=== PATIENT | female | born 1975 | race Caucasian/White ===

== ENCOUNTER → 2017-09-11 | Outpatient (CLI) | payer OTHER ==
[~2017-09-11] MED LIST: ACET325 PO; ALBU90OI INH; ASPIRIN-ACETAM1 EACH PO; BUDE6HFA INH; Bactrim Ds Tab1 EACH PO; Cheratussin AC118 ML PO; Cipro500 MG PO; Flagyl500 MG PO; GABA300 PO; GABA300T24 PO; GLIM2 PO; Glucophage1000 MG PO; LEVSOD125 PO; PRED20 PO; PROM25 PO; Percocet 10-321 EACH PO; Percocet 5-3251 EACH PO; Pravachol40 MG PO; Prednisone20 MG PO; SERT100 PO; VANC125 PO; ZESTORETIC 20-121 EA PO; ZOLP5 PO; Zofran Odt4 MG SL
[2017-09-13 12:39] LABS: HPV Genotype 16 Not Detected (NOTDET); HPV Genotype 18 Not Detected (NOTDET)
[2017-09-25 09:42] LABS: HPV High Risk Other Not Detected (NOTDET)
== END | disposition home or self-care (01) ==
LOC: LAB 11:46 → LAB SHORT 11:46
PROVIDERS: Obstetrics & Gynecology
DX: Z01.419 Encounter for gynecological examination (general) (routine) without abnormal findings (principal); Z90.710 Acquired absence of both cervix and uterus
CPT/HCPCS: 87624; G0123

== ENCOUNTER 2017-12-04 13:50 | Emergency (ER) | END 2017-12-04 17:03 | disposition home or self-care (01) ==

== ENCOUNTER 2018-02-15 05:43 | Day surgery (SDC) | payer OTHER ==
[~2018-02-15] VITALS: Ht 172.7 cm; Wt 145.6 kg
[~2018-02-15 05:43] MED LIST changes: -ACET325 PO; -ASPIRIN-ACETAM1 EACH PO; -Cipro500 MG PO; -Flagyl500 MG PO; -Glucophage1000 MG PO; -LEVSOD125 PO; +LEVSOD88 PO; +Metformin HCl500 MG PO; +PRAV20 PO; -PROM25 PO; -Percocet 5-3251 EACH PO; -Pravachol40 MG PO; -SERT100 PO; +SERT50 PO; -VANC125 PO
[2018-02-15] MEDS ORDERED: Percocet 10-321 EACH PO (06:35)
== END 2018-02-15 22:37 | disposition home or self-care (01) ==
LOC: ORSCMMR 05:43 → ORD 07:30 → ORSCMMR 22:37
PROVIDERS: Surgery
PROC: 0FT44ZZ Resection of Gallbladder, Percutaneous Endoscopic Approach (ICD-10-PCS; principal; 2018-02-15 07:30)
DX: K80.11 Calculus of gallbladder with chronic cholecystitis with obstruction (principal); I10 Essential (primary) hypertension; E11.9 Type 2 diabetes mellitus without complications; E03.9 Hypothyroidism, unspecified; E66.01 Morbid (severe) obesity due to excess calories; Z68.42 Body mass index [BMI] 45.0-49.9, adult; Z87.891 Personal history of nicotine dependence; Z79.899 Other long term (current) drug therapy
CPT/HCPCS: 82947; 88304; J0330; J0690; J1885; J2250; J2405; J2765; J3010; J7120

== ENCOUNTER 2018-03-24 06:02 | Emergency (ER) | payer OTHER ==
[~2018-03-24] VITALS: Ht 172.7 cm; Wt 136.1 kg
[~2018-03-24 06:02] MED LIST changes: +Glucophage1000 MG PO; +LEVSOD125 PO; -LEVSOD88 PO; -Metformin HCl500 MG PO; -PRAV20 PO; +Pravachol40 MG PO; +SERT100 PO; -SERT50 PO
[2018-03-24 06:45] LABS: Source, Urine Clean Catch
[2018-03-24 06:49] LABS: Appearance, Urine Clear (Clear); Bilirubin, Urine Neg (Neg); Blood, Urine 2+ (Neg); Color, Urine Yellow (P-Yellow); Glucose Qualitative, Urine Neg (Neg); Ketones, Urine Neg (Neg); Leukocyte Esterase, Urine Neg (Neg); Nitrite, Urine Neg (Neg); Protein, Urine 3+ (Neg); Urobilinogen, Urine NORM (Normal)
[2018-03-24 06:51] LABS: BASOPHILS ABSOLUTE AUTO 0.04 K/mm3 (0.00-0.23); BASOPHILS PERCENT AUTO 0 % (0-2); EOSINOPHILS ABSOLUTE AUTO 0.59 K/mm3 (0.00-0.68); EOSINOPHILS PERCENT AUTO 5 % (0-6); Hematocrit 39.5 % (33.0-51.0); Hemoglobin 12.6 g/dL (11.5-16.0); IMMATURE GRAN ABSOLUTE AUTO 0.03 K/mm3 (0.00-0.10); IMMATURE GRAN PERCENT AUTO 0 % (0-1); LYMPHOCYTES PERCENT AUTO 16 % (21-46); MONOCYTES ABSOLUTE AUTO 0.57 K/mm3 (0.16-1.47); MONOCYTES PERCENT AUTO 5 % (4-13); Mean Corpuscular HGB 26.9 pg (26.0-34.0); Mean Corpuscular HGB Conc 31.9 g/dL (31.5-36.5); Mean Corpuscular Volume 84 fL (80-100); Mean Platelet Volume 9.5 fL (9.1-12.4); NEUTROPHILS ABSOLUTE AUTO 8.34 K/mm3 (1.96-9.15); NEUTROPHILS PERCENT AUTO 73 % (41-73); Platelet Count 292 K/mm3 (150-400); RDW Coefficient Variation 16.5 % (11.7-14.2); RDW Standard Deviation 50.7 fL (35.1-46.3); Red Blood Cell Count 4.69 M/mm3 (3.80-5.20); White Blood Cell Count 11.37 K/mm3 (4.00-11.30)
[2018-03-24 06:55] LABS: White Blood Cells, Urine Not Seen /hpf (0-5)
[2018-03-24 06:56] LABS: Amorphous Light (0-Heavy); Bacteria Few /hpf; Red Blood Cells, Urine 0-2 /hpf (0-2); Squamous Epithelial Cells Many /hpf (Few)
[2018-03-24 06:57] LABS: Granular Casts 0-2 /lpf (0); Transitional Epithelial Cells Few /hpf (0-Rare)
[2018-03-24 07:11] LABS: Albumin, Blood 3.6 g/dL (3.4-5.0); Albumin/Globulin Ratio 0.7 (0.8-1.8); Bilirubin, Total 0.4 mg/dL (0.1-1.0); Bun/Creatinine Ratio 23.2 (12.0-20.0); Calcium, Blood 9.6 mg/dL (8.5-10.1); Creatinine, Blood 1.55 mg/dL (0.40-1.00); Globulin, Blood 5.1 g/dL (2.2-4.0); Potassium, Blood 4.1 mmol/L (3.5-5.5); Total Protein, Blood 8.7 g/dL (6.4-8.2)
[2018-03-24] MEDS ORDERED: Percocet 10-321 EACH PO ×2 (08:27)
[2018-03-24] MEDS ORDERED: Cipro500 MG PO ×2 (08:27)
[2018-03-24] MEDS ORDERED: Flagyl500 MG PO ×2 (08:27)
== END 2018-03-24 08:40 | disposition home or self-care (01) ==
LOC: ER 06:02
PROVIDERS: Emergency Medicine
DX: K57.32 Diverticulitis of large intestine without perforation or abscess without bleeding (principal); J45.909 Unspecified asthma, uncomplicated; E11.9 Type 2 diabetes mellitus without complications; I10 Essential (primary) hypertension; Z87.891 Personal history of nicotine dependence; Z91.041 Radiographic dye allergy status; Z79.899 Other long term (current) drug therapy; Z79.84 Long term (current) use of oral hypoglycemic drugs; Z79.51 Long term (current) use of inhaled steroids
CPT/HCPCS: 36415; 74176; 80053; 81001; 83690; 85025; 96361; 96374; 96375; 99284-25; J2405; J3010; J7030

== ENCOUNTER 2018-03-25 07:43 | Inpatient (IN) | payer OTHER ==
[~2018-03-25] VITALS: Ht 172.7 cm; Wt 142.1 kg
[~2018-03-25 07:43] MED LIST changes: +Cipro500 MG PO; +Flagyl500 MG PO
[2018-03-25 08:32] LABS: BASOPHILS ABSOLUTE AUTO 0.02 K/mm3 (0.00-0.23); BASOPHILS PERCENT AUTO 0 % (0-2); EOSINOPHILS ABSOLUTE AUTO 0.42 K/mm3 (0.00-0.68); EOSINOPHILS PERCENT AUTO 4 % (0-6); Hematocrit 34.8 % (33.0-51.0); Hemoglobin 11.1 g/dL (11.5-16.0); IMMATURE GRAN ABSOLUTE AUTO 0.04 K/mm3 (0.00-0.10); IMMATURE GRAN PERCENT AUTO 0 % (0-1); LYMPHOCYTES ABSOLUTE AUTO 1.14 K/mm3 (0.84-5.20); LYMPHOCYTES PERCENT AUTO 11 % (21-46); MONOCYTES ABSOLUTE AUTO 0.61 K/mm3 (0.16-1.47); MONOCYTES PERCENT AUTO 6 % (4-13); Mean Corpuscular HGB 27.1 pg (26.0-34.0); Mean Corpuscular HGB Conc 31.9 g/dL (31.5-36.5); Mean Corpuscular Volume 85 fL (80-100); Mean Platelet Volume 9.8 fL (9.1-12.4); NEUTROPHILS ABSOLUTE AUTO 8.61 K/mm3 (1.96-9.15); NEUTROPHILS PERCENT AUTO 79 % (41-73); Platelet Count 254 K/mm3 (150-400); RDW Coefficient Variation 16.7 % (11.7-14.2); RDW Standard Deviation 52.3 fL (35.1-46.3); Red Blood Cell Count 4.09 M/mm3 (3.80-5.20); White Blood Cell Count 10.84 K/mm3 (4.00-11.30)
[2018-03-25 09:01] LABS: Albumin, Blood 3.3 g/dL (3.4-5.0); Albumin/Globulin Ratio 0.7 (0.8-1.8); Bilirubin, Total 0.5 mg/dL (0.1-1.0); Bun/Creatinine Ratio 16.1 (12.0-20.0); Calcium, Blood 8.6 mg/dL (8.5-10.1); Creatinine, Blood 2.54 mg/dL (0.40-1.00); Globulin, Blood 4.6 g/dL (2.2-4.0); Potassium, Blood 4.6 mmol/L (3.5-5.5); Total Protein, Blood 7.9 g/dL (6.4-8.2)
[2018-03-25 12:09] LABS: Source, Urine Clean Catch
[2018-03-25 12:26] LABS: Bilirubin, Urine Neg (Neg); Blood, Urine 1+ (Neg); Glucose Qualitative, Urine Neg (Neg); Ketones, Urine Neg (Neg); Leukocyte Esterase, Urine 1+ (Neg); Nitrite, Urine Neg (Neg); Protein, Urine 3+ (Neg); Specific Gravity, Urine 1.025 (1.003-1.022); Urobilinogen, Urine NORM (Normal)
[2018-03-25 12:39] LABS: Appearance, Urine Hazy (Clear); Bacteria Few /hpf; Color, Urine Yellow (P-Yellow); Red Blood Cells, Urine Not Seen /hpf (0-2); Squamous Epithelial Cells Mod /hpf (Few)
[2018-03-26 05:10] LABS: BASOPHILS ABSOLUTE AUTO 0.03 K/mm3 (0.00-0.23); BASOPHILS PERCENT AUTO 0 % (0-2); EOSINOPHILS ABSOLUTE AUTO 0.28 K/mm3 (0.00-0.68); EOSINOPHILS PERCENT AUTO 3 % (0-6); Hemoglobin 10.6 g/dL (11.5-16.0); IMMATURE GRAN ABSOLUTE AUTO 0.02 K/mm3 (0.00-0.10); IMMATURE GRAN PERCENT AUTO 0 % (0-1); LYMPHOCYTES ABSOLUTE AUTO 1.28 K/mm3 (0.84-5.20); LYMPHOCYTES PERCENT AUTO 15 % (21-46); MONOCYTES ABSOLUTE AUTO 0.54 K/mm3 (0.16-1.47); MONOCYTES PERCENT AUTO 7 % (4-13); Mean Corpuscular HGB Conc 31.2 g/dL (31.5-36.5); Mean Corpuscular Volume 87 fL (80-100); Mean Platelet Volume 9.5 fL (9.1-12.4); NEUTROPHILS ABSOLUTE AUTO 6.18 K/mm3 (1.96-9.15); NEUTROPHILS PERCENT AUTO 74 % (41-73); Platelet Count 221 K/mm3 (150-400); RDW Coefficient Variation 16.1 % (11.7-14.2); RDW Standard Deviation 51.9 fL (35.1-46.3); Red Blood Cell Count 3.93 M/mm3 (3.80-5.20); White Blood Cell Count 8.33 K/mm3 (4.00-11.30)
[2018-03-26 05:33] LABS: Albumin, Blood 2.9 g/dL (3.4-5.0); Albumin/Globulin Ratio 0.6 (0.8-1.8); Bilirubin, Total 0.3 mg/dL (0.1-1.0); Bun/Creatinine Ratio 15.9 (12.0-20.0); C-REACTIVE PROTEIN, EXT RANGE 12.4 mg/dL (0.000-0.300); Creatinine, Blood 1.89 mg/dL (0.40-1.00); Globulin, Blood 4.5 g/dL (2.2-4.0); Potassium, Blood 4.6 mmol/L (3.5-5.5); Total Protein, Blood 7.4 g/dL (6.4-8.2)
[2018-03-27 05:45] LABS: Bun/Creatinine Ratio 12.6 (12.0-20.0); Calcium, Blood 8.2 mg/dL (8.5-10.1); Creatinine, Blood 1.43 mg/dL (0.40-1.00); Potassium, Blood 3.9 mmol/L (3.5-5.5)
[2018-03-27 08:31] LABS: Campylobacter Sp Not Detected (NOT DETECT); Enteroaggregative E. coli-EAEC Not Detected (NOT DETECT); Enteropathogenic E. coli-EPEC Not Detected (NOT DETECT); Enterotoxigenic E. coli-ETEC Not Detected (NOT DETECT); Plesiomonas Shigelloides Not Detected (NOT DETECT); Salmonella Sp Not Detected (NOT DETECT); Vibrio Cholerae Not Detected (NOT DETECT); Vibrio Sp Not Detected (NOT DETECT); Yersinia Enterocolitica Not Detected (NOT DETECT)
[2018-03-27 08:32] LABS: Adenovirus F 40/41 Not Detected (NOT DETECT); Astrovirus Not Detected (NOT DETECT); Cryptosporidium Not Detected (NOT DETECT); Cyclospora Cayetanensis Not Detected (NOT DETECT); E. Coli O157 Not Detected (NOT DETECT); Entamoeba Histolytica Not Detected (NOT DETECT); Giardia Lamblia Not Detected (NOT DETECT); Norovirus GI/GII Not Detected (NOT DETECT); Rotavirus A Not Detected (NOT DETECT); Sapovirus Not Detected (NOT DETECT); Shiga Toxin-prod E. coli-STEC Not Detected (NOT DETECT); Shigella/Enteroin E. coli-EIEC Not Detected (NOT DETECT)
[2018-03-27] MEDS ORDERED: ACET325 PO ×2 (13:22)
[2018-03-27] MEDS ORDERED: ASPIRIN-ACETAM1 EACH PO ×2 (13:28)
[2018-03-27] MEDS ORDERED: Percocet 5-3251 EACH PO ×2 (13:30)
[2018-03-27] MEDS ORDERED: PROM25 PO ×2 (13:32)
[2018-03-27] MEDS ORDERED: VANC125 PO ×2 (13:55)
== END 2018-03-27 14:14 | disposition home or self-care (01) | DRG 392 ==
LOC: ER 07:43 → MEDS 10:23 → ENPENDDIS 03-27 10:08 → MEDS 03-27 14:14
PROVIDERS: Emergency Medicine; Internal Medicine
DX: K57.32 Diverticulitis of large intestine without perforation or abscess without bleeding (principal); N17.9 Acute kidney failure, unspecified; A04.72 Enterocolitis due to Clostridium difficile, not specified as recurrent; Z68.41 Body mass index [BMI] 40.0-44.9, adult; G47.33 Obstructive sleep apnea (adult) (pediatric); E66.01 Morbid (severe) obesity due to excess calories; E86.0 Dehydration; I12.9 Hypertensive chronic kidney disease with stage 1 through stage 4 chronic kidney disease, or unspecified chronic kidney disease; N18.3 Chronic kidney disease, stage 3 (moderate); E11.22 Type 2 diabetes mellitus with diabetic chronic kidney disease; E03.9 Hypothyroidism, unspecified; F32.9 Major depressive disorder, single episode, unspecified; Z91.041 Radiographic dye allergy status; Z79.84 Long term (current) use of oral hypoglycemic drugs; Z79.899 Other long term (current) drug therapy; Z87.891 Personal history of nicotine dependence
CPT/HCPCS: 36415; 74019; 80048; 80053; 81001; 83690; 84145; 85025; 86140; 87086; 87507; 94640; 94762; 96361; 96374; 96375; 99284-25; C9113; J0696; J1170; J1650; J2405; J2765; J3010; J7030

== ENCOUNTER 2018-11-22 19:51 | Inpatient (IN) | payer OTHER ==
[~2018-11-22] VITALS: Ht 172.7 cm; Wt 150.0 kg
[~2018-11-22 19:51] MED LIST changes: +ACET325 PO; +ASPIRIN-ACETAM1 EACH PO; +PROM25 PO; +Percocet 5-3251 EACH PO; +VANC125 PO
[2018-11-22 20:28] LABS: BASOPHILS ABSOLUTE AUTO 0.05 K/mm3 (0.00-0.23); BASOPHILS PERCENT AUTO 0 % (0-2); EOSINOPHILS ABSOLUTE AUTO 0.44 K/mm3 (0.00-0.68); EOSINOPHILS PERCENT AUTO 3 % (0-6); Hematocrit 39.6 % (33.0-51.0); Hemoglobin 12.5 g/dL (11.5-16.0); IMMATURE GRAN ABSOLUTE AUTO 0.08 K/mm3 (0.00-0.10); IMMATURE GRAN PERCENT AUTO 1 % (0-1); LYMPHOCYTES PERCENT AUTO 17 % (21-46); MONOCYTES ABSOLUTE AUTO 0.64 K/mm3 (0.16-1.47); MONOCYTES PERCENT AUTO 5 % (4-13); Mean Corpuscular HGB 26.9 pg (26.0-34.0); Mean Corpuscular HGB Conc 31.6 g/dL (31.5-36.5); Mean Corpuscular Volume 85 fL (80-100); NEUTROPHILS ABSOLUTE AUTO 10.33 K/mm3 (1.96-9.15); NEUTROPHILS PERCENT AUTO 75 % (41-73); Platelet Count 310 K/mm3 (150-400); RDW Coefficient Variation 15.8 % (11.7-14.2); RDW Standard Deviation 48.4 fL (35.1-46.3); Red Blood Cell Count 4.64 M/mm3 (3.80-5.20); White Blood Cell Count 13.84 K/mm3 (4.00-11.30)
[2018-11-22 21:09] LABS: Alanine Aminotransfer (ALT/SGP 37 U/L (12-78); Albumin, Blood 3.4 g/dL (3.4-5.0); Albumin/Globulin Ratio 0.8 (0.8-1.8); Alk Phos 116 U/L (50-136); Anion Gap 10 mmol/L (6-16); Aspartate Aminotrans (AST/SGOT 16 U/L (12-37); Bilirubin, Total 0.2 mg/dL (0.1-1.0); Blood Urea Nitrogen 23 mg/dL (8-24); Bun/Creatinine Ratio 21.3 (12.0-20.0); CO2, Blood 25 mmol/L (21-32); Calcium, Blood 8.8 mg/dL (8.5-10.1); Chloride, Blood 104 mmol/L (98-108); Creatinine, Blood 1.08 mg/dL (0.40-1.00); Globulin, Blood 4.3 g/dL (2.2-4.0); Glomerular Filtration Rate 59 (60-); Glucose, Blood 230 mg/dL (70-99); Sodium, Blood 139 mmol/L (136-145); Total Protein, Blood 7.7 g/dL (6.4-8.2)
[2018-11-23 05:28] LABS: Hematocrit 37.8 % (33.0-51.0); Hemoglobin 11.5 g/dL (11.5-16.0); Mean Corpuscular HGB 27.1 pg (26.0-34.0); Mean Corpuscular HGB Conc 30.4 g/dL (31.5-36.5); Mean Platelet Volume 9.7 fL (9.1-12.4); Platelet Count 255 K/mm3 (150-400); RDW Coefficient Variation 15.9 % (11.7-14.2); RDW Standard Deviation 51.3 fL (35.1-46.3); Red Blood Cell Count 4.25 M/mm3 (3.80-5.20); White Blood Cell Count 11.48 K/mm3 (4.00-11.30)
[2018-11-23 05:33] LABS: Mean Corpuscular Volume 89 fL (80-100)
--- NOTE | 2018-11-23 05:50 | NUR ---
SHIFT SUMMARY PATIENT IS ALERT AND ORIENTED, ARRIVED TO ROOM VIA STRETCHER FROM ER. PATIENT ABLE TO STAND AND TRANSFER TO BED. NO COMPLAINTS OF SOB. PATIENT SLEPT WELL THROUGHOUT THE NIGHT, VITALS STABLE. NEED GI PANEL. USES CALL LIGHT APPROPRIATELY.
[2018-11-23 05:56] LABS: Bun/Creatinine Ratio 18.9 (12.0-20.0); Calcium, Blood 8.4 mg/dL (8.5-10.1); Creatinine, Blood 1.48 mg/dL (0.40-1.00); Magnesium, Blood 1.9 mg/dL (1.6-2.4); Potassium, Blood 4.2 mmol/L (3.5-5.5)
[2018-11-23 14:25] LABS: Adenovirus F 40/41 Not Detected (NOT DETECT); Astrovirus Not Detected (NOT DETECT); Campylobacter Sp Not Detected (NOT DETECT); Cryptosporidium Not Detected (NOT DETECT); Cyclospora Cayetanensis Not Detected (NOT DETECT); E. Coli O157 Not Detected (NOT DETECT); Entamoeba Histolytica Not Detected (NOT DETECT); Enteroaggregative E. coli-EAEC Not Detected (NOT DETECT); Enteropathogenic E. coli-EPEC Detected (NOT DETECT); Enterotoxigenic E. coli-ETEC Not Detected (NOT DETECT); Giardia Lamblia Not Detected (NOT DETECT); Norovirus GI/GII Not Detected (NOT DETECT); Plesiomonas Shigelloides Not Detected (NOT DETECT); Rotavirus A Not Detected (NOT DETECT); Salmonella Sp Not Detected (NOT DETECT); Sapovirus Not Detected (NOT DETECT); Shiga Toxin-prod E. coli-STEC Not Detected (NOT DETECT); Shigella/Enteroin E. coli-EIEC Not Detected (NOT DETECT); Vibrio Cholerae Not Detected (NOT DETECT); Vibrio Sp Not Detected (NOT DETECT); Yersinia Enterocolitica Not Detected (NOT DETECT)
--- NOTE | 2018-11-23 15:11 | NUR ---
1509 DR WALSH NOTIFIED OF POSITIVE STOOL RESULTS, NO NEW ORDERS TO NURSE DIRECTLY AT THIS TIME. HE STATED THAT HE WILL LOOK AT THE RESULTS.
--- NOTE | 2018-11-23 19:23 | NUR ---
SHIFT SUMMARY PT AXO, PLEASANT AND COOPERATIVE WITH CARE. VSS. IV PATENT AND INFUSING PER EMAR. PT UP INDEPENDENTLY IN ROOM AD JESSICA THOUGH AFTER PERCOCET, NURSE SET BED ALARM FOR SAFETY DUE TO PATIENT FEELING "LOOPY. STOOL SAMPLE POSITIVE FOR C-DIFF. DR AND INFECTION PREVENTION AWARE. PT PLACED IN ISO AND EDUCATED. PT DENIES SOB AND NV. BED IN LOW POSITION, CALL LIGHT WITHIN REACH.
--- NOTE | 2018-11-24 03:33 | NUR ---
SHIFT SUMMARY PATIENT HAD NO ACUTE CHANGES OBSERVED THIS SHIFT. AXOX 3 AND INDEPENDENT IN THE ROOM. REPORTED LLQ ABDOMEN PAIN AND RECEIVED PERCOCET X ONE PER EMAR. DENIES SOB AND N/V. PIV REMAINS INTACT. NS INFUSING AT 75 mL/HR ONE OF TWO BAGS. CBG 226. ON 2L O2 NC. CONTACT PRECAUTIONS C-DIFF. ORAL VANCO GIVEN PER EMAR AND IV ABX INFUSED. CALL LIGHT IN REACH. BED IN LOWEST POSITION. WILL CONTINUE TO MONITOR UNTIL DAY SHIFT NURSE ASSUMES CARE.
[2018-11-24 04:53] LABS: BASOPHILS ABSOLUTE AUTO 0.03 K/mm3 (0.00-0.23); BASOPHILS PERCENT AUTO 0 % (0-2); EOSINOPHILS ABSOLUTE AUTO 0.45 K/mm3 (0.00-0.68); EOSINOPHILS PERCENT AUTO 5 % (0-6); Hematocrit 34.4 % (33.0-51.0); Hemoglobin 10.2 g/dL (11.5-16.0); IMMATURE GRAN ABSOLUTE AUTO 0.04 K/mm3 (0.00-0.10); IMMATURE GRAN PERCENT AUTO 0 % (0-1); LYMPHOCYTES ABSOLUTE AUTO 2.62 K/mm3 (0.84-5.20); LYMPHOCYTES PERCENT AUTO 26 % (21-46); MONOCYTES ABSOLUTE AUTO 0.63 K/mm3 (0.16-1.47); MONOCYTES PERCENT AUTO 6 % (4-13); Mean Corpuscular HGB 26.4 pg (26.0-34.0); Mean Corpuscular HGB Conc 29.7 g/dL (31.5-36.5); Mean Corpuscular Volume 89 fL (80-100); Mean Platelet Volume 9.9 fL (9.1-12.4); NEUTROPHILS ABSOLUTE AUTO 6.33 K/mm3 (1.96-9.15); NEUTROPHILS PERCENT AUTO 63 % (41-73); Platelet Count 247 K/mm3 (150-400); RDW Standard Deviation 52.2 fL (35.1-46.3); Red Blood Cell Count 3.86 M/mm3 (3.80-5.20)
[2018-11-24 05:21] LABS: Free Thyroxine 1.02 ng/dL (0.70-1.60)
[2018-11-24 05:23] LABS: Triiodothyronine, Free 2.15 pg/mL (2.18-3.98)
--- NOTE | 2018-11-24 18:32 | NUR ---
SHIFT SUMMARY CAROLYNE COMPLAINED OF ABDOMINAL PAIN LLQ TODAY, RECEIVED OXY AND TYLENOL TO GOOD EFFECT. CBGS REQUIRED INSULIN X1. WEANED TO ROOM AIR FOR DAY SHIFT. FAIR APPETITE. 2BM THIS SHIFT, PT STATES THAT THEY ARE BECOMING SOFT AND NO LONGER LIQUID. CALL LIGHT IN REACH, TM
--- NOTE | 2018-11-25 03:37 | NUR ---
SHIFT SUMMARY PATIENT HAD NO ACUTE CHANGES OBSERVED DURING THE SHIFT. ON RA DURING THE DAY AND 2L O2 WITH CPAP AT NIGHT. AXOX 4 AND INDEPENDENT IN THE ROOM. PIV REMAINS INTACT. IV ABX INFUSED. ORAL VANCO GIVEN PER EMAR. CONTACT PRECAUTIONS: C-DIFF. CBG 194. VSS/AFEBRILE. DENIES PAIN, SOB, AND N/V. CALL LIGHT IN REACH. BED IN LOWEST POSITION. WILL CONTINUE TO MONITOR UNTIL DAY SHIFT NURSE ASSUMES CARE.
[2018-11-25 12:41] LABS: Hematocrit 36.5 % (33.0-51.0); Hemoglobin 11.2 g/dL (11.5-16.0)
[2018-11-25 13:05] LABS: Bun/Creatinine Ratio 20.5 (12.0-20.0); Calcium, Blood 9.1 mg/dL (8.5-10.1); Creatinine, Blood 1.17 mg/dL (0.40-1.00); Potassium, Blood 3.9 mmol/L (3.5-5.5)
--- NOTE | 2018-11-25 18:14 | NUR ---
SHIFT SUMMARY INDEPENDENT IN ROOM OX4; COLONOSCOPY SCHEDULED FOR TOMORROW AFTERNOON. PREP TO START IN A.M.; C/O RIGHT KNEE PAIN DR. VALDEZ AWARE-MEDICATED PER SEP. EATING AND DRINKING WELL. ISOLATION FOR +C.DIFF. CONTINUOUS BIOX IN PLACE O2 SATS 92-94% RA. CONTINUED ABDOMINAL PAIN ALTHOUGH IMPROVED FROM ADMISSION DENIES NAUSEA NO VOMITING. VSS.
--- NOTE | 2018-11-26 03:10 | NUR ---
SHIFT SUMMARY PATIENT HAD NO ACUTE CHANGES OBSERVED THIS SHIFT. AXO X4 AND INDEPENDENT IN THE ROOM. ON 2L O2 WITH CPAP. PIV REMAINS INTACT. IV ABX INFUSED. CONTACT PRECAUTIONS: C-DIFF. CBG 192. REPORTED KNEE PAIN AND RECEIVED OXYCODONE 5 MG PRN. VSS/AFEBRILE. COOPERATIVE WITH CARE. CALL LIGHT IN REACH. BED IN LOWEST POSITION. WILL CONTINUE TO MONITOR UNTIL DAY SHIFT NURSE ASSUMES CARE.
--- NOTE | 2018-11-26 08:05 | NUR ---
PT STARTED ON HER [place].
--- NOTE | 2018-11-26 16:34 | NUR ---
History, Chart, Medications and Allergies reviewed before start of procedure.Patient confirms NPO status and agrees with scheduled surgery. Patient states colon prep results clear.MAC CASE WITH DR. ROBERTO
--- NOTE | 2018-11-26 16:39 | NUR ---
11/26/18 1639 Jorge A Johnston History, Chart, Medications and Allergies reviewed before start of procedure.MONITOR INTACT WITH CONTINUOUS PULSE OXIMETRY AND INTERMITTENT BP.3-LEAD EKG REVIEWED WITH PHYSICIAN PRIOR TO START OF PROCEDURE.O2 VIA N/C INTACT THROUGHOUT SEDATION/PROCEDURE. Patient confirms NPO status and agrees with scheduled surgery.Patient confirms NPO status and agrees with scheduled surgery.See Anesthesia record.
--- NOTE | 2018-11-26 18:49 | NUR ---
PT HAD A COLONOSCOPY LATE THIS AFTERNOON, RETURNED TO ROOM APPROX 1745, VERY DROWSY ON ARRIVAL, THEN WOKE AND WAS ASKING FOR FOOD, DINNER TRAY ORDERED. PT APPEARS TO HAVE TOLERATED PROCEDURE WELL. PT IS ANTICIPATING DISCHARGE IN THE AM. WILL CONTINUE TO MONITOR AND REPORT TO ONCOMING RN
--- NOTE | 2018-11-27 03:28 | NUR ---
SHIFT SUMMARY NO ACUTE CHANGES TO PRESENT THIS SHIFT. PT AWAKE AT START OF SHIFT, TALKING TO DR LYN. NO S/SX OF DISTRESS NOTED OR REPORTED. PT RETURNED TO AFTER HAVING COLONOSCOPY IN THE AFTERNOON. PT DROWSY WHEN FIRST RETURNING, THEREFORE D/C HELD LAST NIGHT. PT WOKE SOON AFTER DR LEFT . PT ABLE TO TOLERATE CL DIET AND WAS ADVANCED TO REG. PT TOLERATED THAT AND REQUESTED MORE. C/O IRVING AT HS. DECLINED TYLENOL, "THAT WON'T HELP". PERCOCET GIVEN PER EMAR. PT REPORTED IT EFFECTIVE. MORBIDLY OBESE, IN CONTACT ISO FOR C-DIFF. PT HAS BEEN INDEPENDENT IN . DENIED FURTHER NEEDS. CALL LT IN REACH.
--- NOTE | 2018-11-27 08:41 | NUR ---
PT LAYING IN BED AWAKE EATING BREAKFAST, A/OX3, PLEASANT AND COOPERATIVE WITH CARE, FOLLOWS COMMANDS WELL, DENIES ANY COMPLAINTS OF PAIN, LUNGS ARE CLEAR T/O, RESP EVEN AND UNLABORED, NO COUGH NOTED, HRR, DISTANT, NO EDEMA NOTED, PPP+2, CAP REFILL <3SEC, VS STABLE, AFEBRILE, IV SITE IS CLEAR AND PATENT, BTX4, ABD LARGE SOFT NONTENDER, VOIDS WITHOUT DIFF, SKIN C/W/D, ARAMIS, WILLARD, CALL LIGHT IN REACH, WILL BE DISCHARGED TO HOME TODAY.
[2018-11-27] MEDS ORDERED: Metamucil Smooth1 EA PO (11:27)
--- NOTE | 2018-11-27 11:45 | NUR ---
PT DISCHARGED PT VERB UNDERSTANDING OF DC INSTRUCTIONS. PERSONAL BELONGINGS WITH PT.
== END 2018-11-27 12:18 | disposition home or self-care (01) | DRG 393 ==
LOC: ER 19:51 → MEDS 22:37 → ENPENDDIS 11-27 08:24 → MEDS 11-27 12:18
PROVIDERS: Emergency Medicine; Internal Medicine; Internal Medicine Gastroenterology; Nurse Practitioner Acute Care; ADMIT Internal Medicine
PROC: 0DBN8ZX Excision of Sigmoid Colon, Via Natural or Artificial Opening Endoscopic, Diagnostic (ICD-10-PCS; principal; 2018-11-26 16:30)
DX: K64.8 Other hemorrhoids (principal); K57.31 Diverticulosis of large intestine without perforation or abscess with bleeding; A04.72 Enterocolitis due to Clostridium difficile, not specified as recurrent; K92.1 Melena; Z68.41 Body mass index [BMI] 40.0-44.9, adult; Q27.30 Arteriovenous malformation, site unspecified; E11.9 Type 2 diabetes mellitus without complications; Z79.4 Long term (current) use of insulin; E66.01 Morbid (severe) obesity due to excess calories; N28.9 Disorder of kidney and ureter, unspecified; Z87.891 Personal history of nicotine dependence; K63.5 Polyp of colon
CPT/HCPCS: 36415; 74176; 80048; 80053; 82272; 82947; 83690; 83735; 84439; 84481; 85014; 85018; 85025; 85027; 87324; 87507; 88305; 94762; 96365; 96375; 99285-25; A9270-GY; C9113; J0694; J0744; J1170; J2250; J2405; J2704; J3010; J7030; J7120

== ENCOUNTER 2019-03-22 19:17 | Emergency (ER) | payer OTHER ==
[~2019-03-22] VITALS: Ht 172.7 cm; Wt 136.1 kg
[~2019-03-22 19:17] MED LIST changes: +Metamucil Smooth1 EA PO
[2019-03-22 19:50] LABS: BASOPHILS ABSOLUTE AUTO 0.05 K/mm3 (0.00-0.23); BASOPHILS PERCENT AUTO 0 % (0-2); EOSINOPHILS PERCENT AUTO 4 % (0-6); Hematocrit 41.2 % (33.0-51.0); IMMATURE GRAN ABSOLUTE AUTO 0.04 K/mm3 (0.00-0.10); IMMATURE GRAN PERCENT AUTO 0 % (0-1); LYMPHOCYTES ABSOLUTE AUTO 2.07 K/mm3 (0.84-5.20); LYMPHOCYTES PERCENT AUTO 17 % (21-46); MONOCYTES ABSOLUTE AUTO 0.51 K/mm3 (0.16-1.47); MONOCYTES PERCENT AUTO 4 % (4-13); Mean Corpuscular HGB 26.7 pg (26.0-34.0); Mean Corpuscular HGB Conc 31.6 g/dL (31.5-36.5); Mean Corpuscular Volume 85 fL (80-100); Mean Platelet Volume 9.6 fL (9.1-12.4); NEUTROPHILS ABSOLUTE AUTO 9.01 K/mm3 (1.96-9.15); NEUTROPHILS PERCENT AUTO 74 % (41-73); Platelet Count 298 K/mm3 (150-400); RDW Coefficient Variation 15.5 % (11.7-14.2); RDW Standard Deviation 48.1 fL (35.1-46.3); Red Blood Cell Count 4.87 M/mm3 (3.80-5.20); White Blood Cell Count 12.18 K/mm3 (4.00-11.30)
[2019-03-22 20:09] LABS: Alanine Aminotransfer (ALT/SGP 30 U/L (12-78); Albumin, Blood 3.2 g/dL (3.4-5.0); Albumin/Globulin Ratio 0.7 (0.8-1.8); Alk Phos 110 U/L (50-136); Anion Gap 7 mmol/L (6-16); Aspartate Aminotrans (AST/SGOT 19 U/L (12-37); Bilirubin, Total 0.3 mg/dL (0.1-1.0); Blood Urea Nitrogen 35 mg/dL (8-24); Bun/Creatinine Ratio 27.1 (12.0-20.0); CO2, Blood 23 mmol/L (21-32); Calcium, Blood 8.7 mg/dL (8.5-10.1); Chloride, Blood 104 mmol/L (98-108); Creatinine, Blood 1.29 mg/dL (0.40-1.00); Globulin, Blood 4.5 g/dL (2.2-4.0); Glomerular Filtration Rate 48 (60-); Glucose, Blood 303 mg/dL (70-99); Potassium, Blood 3.9 mmol/L (3.5-5.5); Sodium, Blood 134 mmol/L (136-145); Total Protein, Blood 7.7 g/dL (6.4-8.2); Troponin I <0.015 ng/mL (0.000-0.040)
[2019-03-22] MEDS ORDERED: CYCL10 PO (22:10)
[2019-03-22] MEDS ORDERED: IBUP800 PO (22:10)
== END 2019-03-23 01:18 | disposition home or self-care (01) ==
LOC: ER 19:17
PROVIDERS: Physician Assistant
DX: R51 Headache (principal); M62.81 Muscle weakness (generalized); M54.12 Radiculopathy, cervical region; E66.01 Morbid (severe) obesity due to excess calories; Z68.42 Body mass index [BMI] 45.0-49.9, adult; J45.909 Unspecified asthma, uncomplicated; E11.9 Type 2 diabetes mellitus without complications; I10 Essential (primary) hypertension; Z87.891 Personal history of nicotine dependence; Z91.041 Radiographic dye allergy status; Z79.899 Other long term (current) drug therapy; Z79.84 Long term (current) use of oral hypoglycemic drugs
CPT/HCPCS: 70450; 71046; 80053; 84484; 85025; 93005; 93010; 99284-25

== ENCOUNTER 2019-07-24 19:00 | Inpatient (IN) | payer OTHER ==
[~2019-07-24] VITALS: Ht 172.7 cm; Wt 151.5 kg
[~2019-07-24 19:00] MED LIST changes: +BENZ100A PO; +CYCL10 PO; +IBUP800 PO
[2019-07-24 19:46] LABS: BASOPHILS ABSOLUTE AUTO 0.03 K/mm3 (0.00-0.23); BASOPHILS PERCENT AUTO 0 % (0-2); EOSINOPHILS ABSOLUTE AUTO 0.35 K/mm3 (0.00-0.68); EOSINOPHILS PERCENT AUTO 5 % (0-6); Hematocrit 41.9 % (33.0-51.0); IMMATURE GRAN ABSOLUTE AUTO 0.03 K/mm3 (0.00-0.10); IMMATURE GRAN PERCENT AUTO 0 % (0-1); LYMPHOCYTES PERCENT AUTO 13 % (21-46); MONOCYTES ABSOLUTE AUTO 0.42 K/mm3 (0.16-1.47); MONOCYTES PERCENT AUTO 6 % (4-13); Mean Corpuscular HGB 27.3 pg (26.0-34.0); Mean Corpuscular Volume 88 fL (80-100); Mean Platelet Volume 9.9 fL (9.1-12.4); NEUTROPHILS ABSOLUTE AUTO 5.71 K/mm3 (1.96-9.15); NEUTROPHILS PERCENT AUTO 76 % (41-73); Platelet Count 252 K/mm3 (150-400); RDW Coefficient Variation 15.7 % (11.7-14.2); RDW Standard Deviation 50.6 fL (35.1-46.3); Red Blood Cell Count 4.76 M/mm3 (3.80-5.20); White Blood Cell Count 7.54 K/mm3 (4.00-11.30)
[2019-07-24 20:10] LABS: Alanine Aminotransfer (ALT/SGP 45 U/L (12-78); Albumin, Blood 3.1 g/dL (3.4-5.0); Albumin/Globulin Ratio 0.7 (0.8-1.8); Alk Phos 132 U/L (50-136); Anion Gap 5 mmol/L (6-16); Aspartate Aminotrans (AST/SGOT 23 U/L (12-37); Bilirubin, Total 0.3 mg/dL (0.1-1.0); Blood Urea Nitrogen 21 mg/dL (8-24); Bun/Creatinine Ratio 16.9 (12.0-20.0); CO2, Blood 28 mmol/L (21-32); Calcium, Blood 8.3 mg/dL (8.5-10.1); Chloride, Blood 103 mmol/L (98-108); Creatinine, Blood 1.24 mg/dL (0.40-1.00); Globulin, Blood 4.6 g/dL (2.2-4.0); Glomerular Filtration Rate 51 (60-); Glucose, Blood 263 mg/dL (70-99); Potassium, Blood 3.9 mmol/L (3.5-5.5); Sodium, Blood 136 mmol/L (136-145); Total Protein, Blood 7.7 g/dL (6.4-8.2); Troponin I <0.015 ng/mL (0.000-0.040)
[2019-07-24] MEDS ORDERED: ATOR20 PO (20:48)
[2019-07-24] MEDS ORDERED: BASAGLAR K100 UNIT/2 SC (20:50)
--- NOTE | 2019-07-25 04:03 | NUR ---
SHIFT SUMMARY PT ARRIVED FROM ER IN NO DISTRESS. PT DENIES SOB AT THIS TIME. PT CURRENTLY WATCHING TV AND BREATHING EASY. CALL LIGHT IN REACH.
[2019-07-25 04:36] LABS: BASOPHILS ABSOLUTE AUTO 0.02 K/mm3 (0.00-0.23); BASOPHILS PERCENT AUTO 0 % (0-2); EOSINOPHILS ABSOLUTE AUTO 0.03 K/mm3 (0.00-0.68); EOSINOPHILS PERCENT AUTO 0 % (0-6); Hematocrit 41.2 % (33.0-51.0); Hemoglobin 12.7 g/dL (11.5-16.0); IMMATURE GRAN ABSOLUTE AUTO 0.03 K/mm3 (0.00-0.10); IMMATURE GRAN PERCENT AUTO 0 % (0-1); LYMPHOCYTES ABSOLUTE AUTO 0.48 K/mm3 (0.84-5.20); LYMPHOCYTES PERCENT AUTO 7 % (21-46); MONOCYTES PERCENT AUTO 1 % (4-13); Mean Corpuscular HGB Conc 30.8 g/dL (31.5-36.5); Mean Corpuscular Volume 88 fL (80-100); Mean Platelet Volume 9.8 fL (9.1-12.4); NEUTROPHILS ABSOLUTE AUTO 6.57 K/mm3 (1.96-9.15); NEUTROPHILS PERCENT AUTO 91 % (41-73); Platelet Count 237 K/mm3 (150-400); RDW Coefficient Variation 15.6 % (11.7-14.2); RDW Standard Deviation 50.2 fL (35.1-46.3); Red Blood Cell Count 4.71 M/mm3 (3.80-5.20); White Blood Cell Count 7.23 K/mm3 (4.00-11.30)
[2019-07-25 05:01] LABS: Albumin, Blood 3.1 g/dL (3.4-5.0); Anion Gap 8 mmol/L (6-16); Blood Urea Nitrogen 22 mg/dL (8-24); Bun/Creatinine Ratio 19.1 (12.0-20.0); CO2, Blood 23 mmol/L (21-32); Calcium, Blood 8.3 mg/dL (8.5-10.1); Chloride, Blood 106 mmol/L (98-108); Creatinine, Blood 1.15 mg/dL (0.40-1.00); Glomerular Filtration Rate 55 (60-); Glucose, Blood 368 mg/dL (70-99); Phosphorus, Blood 2.8 mg/dL (2.5-4.9); Potassium, Blood 4.4 mmol/L (3.5-5.5); Sodium, Blood 137 mmol/L (136-145)
[2019-07-25 05:55] LABS: Adenovirus Not Detected (NOT DETECT); Bordetella pertussis Not Detected (NOT DETECT); Chlamydophila pneumoniae Not Detected (NOT DETECT); Coronavirus 229E Not Detected (NOT DETECT); Coronavirus HKU1 Detected (NOT DETECT); Coronavirus NL63 Not Detected (NOT DETECT); Coronavirus OC43 Not Detected (NOT DETECT); Human Metapneumovirus Not Detected (NOT DETECT); Human Rhinovirus/Enterovirus Not Detected (NOT DETECT); Influenza A Not Detected (NOT DETECT); Influenza A/2009-H1 Not Detected (NOT DETECT); Influenza A/H1 Not Detected (NOT DETECT); Influenza A/H3 Not Detected (NOT DETECT); Influenza B Not Detected (NOT DETECT); Mycoplasma pneumoniae Not Detected (NOT DETECT); Parainfluenza Virus 1 Not Detected (NOT DETECT); Parainfluenza Virus 2 Not Detected (NOT DETECT); Parainfluenza Virus 3 Not Detected (NOT DETECT); Parainfluenza Virus 4 Not Detected (NOT DETECT); Respiratory Syncytial Virus Not Detected (NOT DETECT)
--- NOTE | 2019-07-25 11:38 | NUR ---
447 BLOOD SUGAR PT HAS A BLOOD SUGAR OF [address] GOMEZ NOTIFIED. NO EXTRA ORDERED GIVEN. WILL MEDICATE WITH 12 UNITS OF INSULIN PREVIOUSLY ORDERED. WILL CONTINUE TO MONITOR.
--- NOTE | 2019-07-25 16:46 | NUR ---
SHIFT SUMMARY PT BLOOD SUGAR REMAINS ELEVATED IN THE 400S MOST THE DAY. DR. OLIVAS AWARE. PT STATES SHE HAS HAD A HISTORY OF DIFFICULTY CONTROLLING INSULIN WHEN ON STERIODS IN THE PAST. PT MEDICATED PER EMAR FOR INSULIN. PT HOME CPAP SET UP IN ROOM. NO OTHER CHANGES IN ASSESSMENT AT THIS TIME. WILL CONITNUE TO MONITOR UNTIL TURNOVER IS COMPLETE.
[2019-07-25] MEDS ORDERED: METF500 PO (18:00)
--- NOTE | 2019-07-26 05:07 | NUR ---
TRIMMER HAND SUMMARY NO ACUTE CHANGES THIS SHIFT. PT AAOX4 AND INDEPENDENT IN ROOM. CBG AT HS IMPROVED AT 379, SEVERAL PREVIOUS CBG'S >400. GAVE 10 UNITS LANTUS AT HS. PT REPORTS BREATHING IMPROVED AND STATES SHE ONLY HAS SOME SOB WHEN SHE TAKES WALKS. PT REPORTED THAT SHE TOOK A WALK FROM HER ROOM TO THE ELEVATOR AND BACK DURING DAY SHIFT AND TOOK A FEW MINUTES TO CATCH HER BREATH. VSS, WILL CONTINUE TO MONITOR.
[2019-07-26 05:58] LABS: Albumin, Blood 2.9 g/dL (3.4-5.0); Anion Gap 9 mmol/L (6-16); Blood Urea Nitrogen 33 mg/dL (8-24); Bun/Creatinine Ratio 28.9 (12.0-20.0); CO2, Blood 23 mmol/L (21-32); Calcium, Blood 8.9 mg/dL (8.5-10.1); Chloride, Blood 102 mmol/L (98-108); Creatinine, Blood 1.14 mg/dL (0.40-1.00); Glomerular Filtration Rate 56 (60-); Glucose, Blood 405 mg/dL (70-99); Phosphorus, Blood 4.3 mg/dL (2.5-4.9); Potassium, Blood 4.4 mmol/L (3.5-5.5); Sodium, Blood 134 mmol/L (136-145)
--- NOTE | 2019-07-26 16:56 | NUR ---
SHIFT SUMMARY PT BLOOD SUGAR REMAINS ELEVATED IN THE 400S. NO CHANGES IN PT CONDITION. VSS. PT SATING WELL WITH NO O2. LS IMPROVED FROM YESTERDAY. NO OTHER CHANGES IN ASSESSMENT AT THIS TIME. WILL CONTINUE TO MONITOR UNTIL TURNOVER IS COMPLETE.
[2019-07-27 04:58] LABS: Albumin, Blood 2.8 g/dL (3.4-5.0); Anion Gap 7 mmol/L (6-16); Blood Urea Nitrogen 46 mg/dL (8-24); Bun/Creatinine Ratio 38.3 (12.0-20.0); CO2, Blood 25 mmol/L (21-32); Calcium, Blood 8.2 mg/dL (8.5-10.1); Chloride, Blood 105 mmol/L (98-108); Glomerular Filtration Rate 52 (60-); Glucose, Blood 293 mg/dL (70-99); Phosphorus, Blood 3.3 mg/dL (2.5-4.9); Sodium, Blood 137 mmol/L (136-145)
--- NOTE | 2019-07-27 06:30 | NUR ---
SHIFT SUMMARY- NO ACUTE CHANGES OVERNIGHT. PT. SLEPT ON/OFF DURING THE NIGHT WITH CPAP ON. PT. SHOWERED LAST NIGHT. BS WAS IN THE 300'S, INSULIN GIVEN PER EMAR. DENIED ANY PAIN OR DISCOMFORT T/O THE SHIFT. PT. RESTING COMFORTABLY IN BED, NO APPARENT DISTRESS NOTED. PLAN FOR POSS D/C TODAY IF BS IMPROVE. CALL LIGHT WITHIN REACH AND SIDE RAILS UP X2. WILL CONT TO MONITOR.
[2019-07-27] MEDS ORDERED: BENZ100A PO (09:46)
[2019-07-27] MEDS ORDERED: LISI20 PO (09:48)
[2019-07-27] MEDS ORDERED: INSULIN LI100 UNIT/2 SC (09:48)
[2019-07-27] MEDS ORDERED: PRED10 PO (09:51)
--- NOTE | 2019-07-27 11:38 | NUR ---
DISCHARGE NOTE PT DISCHARGED TO HOME. PT LEFT ROOM VIA WHEELCHAIR AND INSURANCE CLAIMS ADJUSTER ESCORT JUST PRIOR TO THIS NOTE. PT COMPLAINED OF HEARTBURN PRIOR TO DC BUT OPTED TO BUY OTC MEDICATION WHEN SHE GOES TO PHARMACY TO GET PRESCRIPTIONS. PT EDUCATED ON MEDS, HOW TO ADMINISTER INSULIN, STORAGE OF INSULIN, MEDIUM SLIDING SCALE, ETC. PT EXHIBITS UNDERSTANDING AND AGREES TO COMPLY WITH RECOMMENDATIONS. IC DC'D AND BELONGINGS RETURNED.
== END 2019-07-27 11:37 | disposition home or self-care (01) | DRG 203 ==
LOC: ER 19:00 → MEDS 19:01
PROVIDERS: Internal Medicine; Nurse Practitioner Acute Care; Physician Assistant; ADMIT Internal Medicine
DX: J45.901 Unspecified asthma with (acute) exacerbation (principal); E11.65 Type 2 diabetes mellitus with hyperglycemia; G47.33 Obstructive sleep apnea (adult) (pediatric); E03.9 Hypothyroidism, unspecified; I12.9 Hypertensive chronic kidney disease with stage 1 through stage 4 chronic kidney disease, or unspecified chronic kidney disease; N18.3 Chronic kidney disease, stage 3 (moderate); E66.01 Morbid (severe) obesity due to excess calories; E11.22 Type 2 diabetes mellitus with diabetic chronic kidney disease; E78.5 Hyperlipidemia, unspecified; Z87.891 Personal history of nicotine dependence; Z79.4 Long term (current) use of insulin; Z79.84 Long term (current) use of oral hypoglycemic drugs; Z79.899 Other long term (current) drug therapy
CPT/HCPCS: 0099U; 36415; 71046; 80053; 80069; 82947; 83036; 84484; 85025; 90686; 93005; 93010; 94640; 94762; 96361; 96365; 96366; 96372; 96375; 96376; 99285-25; A9270; G0008; G0378; J1644; J2920; J2930; J3475; J7030; J7512

== ENCOUNTER 2019-07-29 17:40 | Emergency (ER) | payer OTHER ==
[~2019-07-29] VITALS: Ht 172.7 cm; Wt 136.1 kg
[~2019-07-29 17:40] MED LIST changes: +ATOR20 PO; +BASAGLAR K100 UNIT/2 SC; +INSULIN LI100 UNIT/2 SC; +LISI20 PO; +METF500 PO; +PRED10 PO
== END 2019-07-29 18:57 | disposition home or self-care (01) ==
LOC: ER 17:40
DX: T81.40XA Infection following a procedure, unspecified, initial encounter (principal); I82.611 Acute embolism and thrombosis of superficial veins of right upper extremity; L03.113 Cellulitis of right upper limb; I12.9 Hypertensive chronic kidney disease with stage 1 through stage 4 chronic kidney disease, or unspecified chronic kidney disease; E11.22 Type 2 diabetes mellitus with diabetic chronic kidney disease; N18.3 Chronic kidney disease, stage 3 (moderate); E78.5 Hyperlipidemia, unspecified; E03.9 Hypothyroidism, unspecified; J45.909 Unspecified asthma, uncomplicated; E66.01 Morbid (severe) obesity due to excess calories; Z68.42 Body mass index [BMI] 45.0-49.9, adult; Z87.891 Personal history of nicotine dependence; Z91.041 Radiographic dye allergy status; Z79.899 Other long term (current) drug therapy; Z79.4 Long term (current) use of insulin; Z79.51 Long term (current) use of inhaled steroids; Y84.8 Other medical procedures as the cause of abnormal reaction of the patient, or of later complication, without mention of misadventure at the time of the procedure
CPT/HCPCS: 93971; 99283-25

== ENCOUNTER → 2019-12-12 | Outpatient (CLI) | payer OTHER | END | disposition home or self-care (01) | LOC: LAB SHORT 15:00 → LAB 15:00 → LAB FUT 08-21 16:25 | DX: N39.0 Urinary tract infection, site not specified (principal) | CPT/HCPCS: 87086 ==

== ENCOUNTER → 2020-04-25 | Outpatient (CLI) | payer OTHER | END | disposition home or self-care (01) | LOC: LAB 10:30 → LAB SHORT 10:30 | DX: J02.9 Acute pharyngitis, unspecified (principal) | CPT/HCPCS: 87081 ==

== ENCOUNTER 2020-04-27 17:13 | Emergency (ER) | payer OTHER ==
[~2020-04-27] VITALS: Ht 172.7 cm; Wt 142.0 kg
[2020-04-27 18:17] LABS: BASOPHILS ABSOLUTE AUTO 0.03 K/mm3 (0.00-0.23); BASOPHILS PERCENT AUTO 0 % (0-2); EOSINOPHILS ABSOLUTE AUTO 0.43 K/mm3 (0.00-0.68); EOSINOPHILS PERCENT AUTO 4 % (0-6); Hematocrit 45.8 % (33.0-51.0); Hemoglobin 14.5 g/dL (11.5-16.0); IMMATURE GRAN ABSOLUTE AUTO 0.05 K/mm3 (0.00-0.10); IMMATURE GRAN PERCENT AUTO 0 % (0-1); LYMPHOCYTES ABSOLUTE AUTO 1.61 K/mm3 (0.84-5.20); LYMPHOCYTES PERCENT AUTO 14 % (21-46); MONOCYTES ABSOLUTE AUTO 0.68 K/mm3 (0.16-1.47); MONOCYTES PERCENT AUTO 6 % (4-13); Mean Corpuscular HGB 26.8 pg (26.0-34.0); Mean Corpuscular HGB Conc 31.7 g/dL (31.5-36.5); Mean Corpuscular Volume 85 fL (80-100); Mean Platelet Volume 10.1 fL (9.1-12.4); NEUTROPHILS ABSOLUTE AUTO 8.58 K/mm3 (1.96-9.15); NEUTROPHILS PERCENT AUTO 75 % (41-73); Platelet Count 300 K/mm3 (150-400); RDW Coefficient Variation 15.6 % (11.7-14.2); RDW Standard Deviation 47.6 fL (35.1-46.3); Red Blood Cell Count 5.42 M/mm3 (3.80-5.20); White Blood Cell Count 11.38 K/mm3 (4.00-11.30)
[2020-04-27 18:55] LABS: Albumin/Globulin Ratio 0.6 (0.8-1.8); Bilirubin, Total 0.3 mg/dL (0.1-1.0); Bun/Creatinine Ratio 19.7 (12.0-20.0); Calcium, Blood 9.1 mg/dL (8.5-10.1); Creatinine, Blood 1.22 mg/dL (0.40-1.00); Globulin, Blood 4.8 g/dL (2.2-4.0); Potassium, Blood 3.8 mmol/L (3.5-5.5); Total Protein, Blood 7.8 g/dL (6.4-8.2)
== END 2020-04-27 21:56 | disposition left against medical advice (07) ==
LOC: ER 17:13
PROVIDERS: Physician Assistant
DX: R06.02 Shortness of breath (principal); Z53.21 Procedure and treatment not carried out due to patient leaving prior to being seen by health care provider; Z20.828 Contact with and (suspected) exposure to other viral communicable diseases; Z79.4 Long term (current) use of insulin; Z79.52 Long term (current) use of systemic steroids; Z79.899 Other long term (current) drug therapy
CPT/HCPCS: 36415; 71045; 80053; 85025; 99283-25; U0003

== ENCOUNTER → 2020-07-16 | Outpatient (CLI) | payer OTHER ==
[2020-07-18 14:34] LABS: Candida species (DNA Probe) Negative (NEGATIVE); G. vaginalis (DNA Probe) Negative (NEGATIVE); T. vaginalis (DNA Probe) Negative (NEGATIVE)
== END ==
LOC: LAB SHORT 16:30
PROVIDERS: Nurse Practitioner Family
DX: R00.2 Palpitations (principal); M25.562 Pain in left knee; M25.511 Pain in right shoulder; M17.0 Bilateral primary osteoarthritis of knee
CPT/HCPCS: 87480; 87510; 87660

== ENCOUNTER 2021-02-16 18:33 | Emergency (ER) | payer OTHER ==
[~2021-02-16] VITALS: Ht 172.7 cm; Wt 136.1 kg
[2021-02-16 19:06] LABS: Source, Urine Clean Catch
[2021-02-16 19:12] LABS: Appearance, Urine Hazy (Clear); Bilirubin, Urine Neg (Neg); Blood, Urine 2+ (Neg); Color, Urine Yellow (P-Yellow); Glucose Qualitative, Urine 4+ (Neg); Ketones, Urine Neg (Neg); Leukocyte Esterase, Urine Neg (Neg); Nitrite, Urine Neg (Neg); Protein, Urine 4+ (Neg); Urobilinogen, Urine NORM (Normal)
[2021-02-16 19:40] LABS: BASOPHILS ABSOLUTE AUTO 0.05 K/mm3 (0.00-0.23); BASOPHILS PERCENT AUTO 1 % (0-2); EOSINOPHILS ABSOLUTE AUTO 0.44 K/mm3 (0.00-0.68); EOSINOPHILS PERCENT AUTO 4 % (0-6); Hematocrit 46.9 % (33.0-51.0); Hemoglobin 15.3 g/dL (11.5-16.0); IMMATURE GRAN ABSOLUTE AUTO 0.05 K/mm3 (0.00-0.10); IMMATURE GRAN PERCENT AUTO 1 % (0-1); LYMPHOCYTES ABSOLUTE AUTO 1.85 K/mm3 (0.84-5.20); LYMPHOCYTES PERCENT AUTO 18 % (21-46); MONOCYTES ABSOLUTE AUTO 0.53 K/mm3 (0.16-1.47); MONOCYTES PERCENT AUTO 5 % (4-13); Mean Corpuscular HGB 27.8 pg (26.0-34.0); Mean Corpuscular HGB Conc 32.6 g/dL (31.5-36.5); Mean Corpuscular Volume 85 fL (80-100); Mean Platelet Volume 9.9 fL (9.1-12.4); NEUTROPHILS ABSOLUTE AUTO 7.35 K/mm3 (1.96-9.15); NEUTROPHILS PERCENT AUTO 72 % (41-73); Platelet Count 325 K/mm3 (150-400); RDW Coefficient Variation 15.4 % (11.7-14.2); RDW Standard Deviation 47.9 fL (35.1-46.3); Red Blood Cell Count 5.51 M/mm3 (3.80-5.20); White Blood Cell Count 10.27 K/mm3 (4.00-11.30)
[2021-02-16 19:43] LABS: Red Blood Cells, Urine 0-2 /hpf (0-2); Squamous Epithelial Cells Many /hpf (Few); White Blood Cells, Urine 0-2 /hpf (0-5)
[2021-02-16 19:44] LABS: Bacteria Many /hpf
[2021-02-16 20:13] LABS: Albumin, Blood 3.1 g/dL (3.4-5.0); Albumin/Globulin Ratio 0.6 (0.8-1.8); Bilirubin, Total 0.5 mg/dL (0.1-1.0); Bun/Creatinine Ratio 15.1 (12.0-20.0); Calcium, Blood 8.9 mg/dL (8.5-10.1); Creatinine, Blood 1.46 mg/dL (0.40-1.00); Globulin, Blood 4.8 g/dL (2.2-4.0); Total Protein, Blood 7.9 g/dL (6.4-8.2)
[2021-02-16] MEDS ORDERED: FURO20 PO (23:24)
[2021-02-16] MEDS ORDERED: KLOR-CON 1010 ME3 PO (23:24)
[2021-02-17] MEDS ORDERED: CYCL10 PO (01:15)
[2021-02-17] MEDS ORDERED: IBUP600 PO (01:15)
== END 2021-02-17 01:36 | disposition home or self-care (01) ==
LOC: ER 18:33
PROVIDERS: Emergency Medicine; Physician Assistant
DX: M54.9 Dorsalgia, unspecified (principal); E11.22 Type 2 diabetes mellitus with diabetic chronic kidney disease; N18.30 Chronic kidney disease, stage 3 unspecified; I12.9 Hypertensive chronic kidney disease with stage 1 through stage 4 chronic kidney disease, or unspecified chronic kidney disease; E03.9 Hypothyroidism, unspecified; E78.5 Hyperlipidemia, unspecified; Z91.041 Radiographic dye allergy status; Z79.4 Long term (current) use of insulin; Z79.899 Other long term (current) drug therapy; Z87.891 Personal history of nicotine dependence; Z85.42 Personal history of malignant neoplasm of other parts of uterus; Z87.442 Personal history of urinary calculi
CPT/HCPCS: 36415; 74176; 80053; 81001; 85025; 87086; 96374; 99284-25; A9270; J1885

== ENCOUNTER → 2021-04-13 | Outpatient (CLI) | payer OTHER ==
[~2021-04-13] MED LIST changes: +FURO20 PO; +IBUP600 PO; +KLOR-CON 1010 ME3 PO
== END | disposition home or self-care (01) ==
LOC: LAB SHORT 17:00
DX: J02.9 Acute pharyngitis, unspecified (principal)
CPT/HCPCS: 87081

== ENCOUNTER → 2021-06-16 | Outpatient (CLI) | payer OTHER ==
[2021-06-18 16:01] LABS: CORONAVIRUS (COVID19) CSH-NRL Negative (Negative)
== END | disposition home or self-care (01) ==
LOC: LAB SHORT 16:44 → LAB 16:44
PROVIDERS: Physician Assistant Medical
DX: Z20.822 Contact with and (suspected) exposure to COVID-19 (principal)
CPT/HCPCS: U0003

== ENCOUNTER 2023-08-11 15:46 | Emergency (ER) | payer OTHER ==
[~2023-08-11] VITALS: Ht 172.7 cm; Wt 118.8 kg
[~2023-08-11 15:46] MED LIST changes: +EUTHYROX150 MC1 PO
[2023-08-11 15:51] VITALS: BP 136/82
[2023-08-11 16:07] LABS: BASOPHILS ABSOLUTE AUTO 0.04 K/mm3 (0.00-0.23); BASOPHILS PERCENT AUTO 0 % (0-2); EOSINOPHILS ABSOLUTE AUTO 0.61 K/mm3 (0.00-0.68); EOSINOPHILS PERCENT AUTO 5 % (0-6); Hematocrit 42.2 % (33.0-51.0); Hemoglobin 13.7 g/dL (11.5-16.0); IMMATURE GRAN ABSOLUTE AUTO 0.03 K/mm3 (0.00-0.10); IMMATURE GRAN PERCENT AUTO 0 % (0-1); LYMPHOCYTES ABSOLUTE AUTO 2.05 K/mm3 (0.84-5.20); LYMPHOCYTES PERCENT AUTO 18 % (21-46); MONOCYTES ABSOLUTE AUTO 0.66 K/mm3 (0.16-1.47); MONOCYTES PERCENT AUTO 6 % (4-13); Mean Corpuscular HGB 27.6 pg (26.0-34.0); Mean Corpuscular HGB Conc 32.5 g/dL (31.5-36.5); Mean Corpuscular Volume 85 fL (80-100); Mean Platelet Volume 9.5 fL (9.1-12.4); NEUTROPHILS ABSOLUTE AUTO 7.87 K/mm3 (1.96-9.15); NEUTROPHILS PERCENT AUTO 70 % (41-73); Platelet Count 292 K/mm3 (150-400); RDW Coefficient Variation 14.6 % (11.7-14.2); RDW Standard Deviation 44.7 fL (35.1-46.3); Red Blood Cell Count 4.96 M/mm3 (3.80-5.20); White Blood Cell Count 11.26 K/mm3 (4.00-11.30)
[2023-08-11 16:31] LABS: Albumin, Blood 3.2 g/dL (3.4-5.0); Albumin/Globulin Ratio 0.8 (0.8-1.8); Bilirubin, Total 0.3 mg/dL (0.1-1.0); Bun/Creatinine Ratio 23.3 (12.0-20.0); Calcium, Blood 8.8 mg/dL (8.5-10.1); Creatinine, Blood 1.03 mg/dL (0.40-1.00); Globulin, Blood 4.2 g/dL (2.2-4.0); Potassium, Blood 4.1 mmol/L (3.5-5.5); Total Protein, Blood 7.4 g/dL (6.4-8.2)
[2023-08-11 16:49] LABS: Influenza A, PCR NEGATIVE (NEGATIVE); Influenza B, PCR NEGATIVE (NEGATIVE); Resp Syncytial Virus, PCR NEGATIVE (NEGATIVE); SARS-Cov-2 (COVID-19) PCR, MMC NEGATIVE (NEGATIVE)
== END 2023-08-11 17:21 | disposition home or self-care (01) ==
LOC: ER 15:46
PROVIDERS: Physician Assistant
DX: R05.9 Cough, unspecified (principal); Z91.041 Radiographic dye allergy status; Z79.899 Other long term (current) drug therapy; Z79.4 Long term (current) use of insulin; J45.909 Unspecified asthma, uncomplicated; E11.22 Type 2 diabetes mellitus with diabetic chronic kidney disease; N18.30 Chronic kidney disease, stage 3 unspecified; I12.9 Hypertensive chronic kidney disease with stage 1 through stage 4 chronic kidney disease, or unspecified chronic kidney disease; E78.5 Hyperlipidemia, unspecified; E03.9 Hypothyroidism, unspecified; Z87.891 Personal history of nicotine dependence
CPT/HCPCS: 0241U; 71046; 80053; 85025; 99283-25

== ENCOUNTER → 2024-05-03 | Outpatient (CLI) | payer OTHER | LOC: LAB 15:49 → LAB SHORT 15:49 | DX: N39.0 Urinary tract infection, site not specified (principal) | CPT/HCPCS: 87077; 87086; 87186 ==

== ENCOUNTER 2024-08-14 19:25 | Emergency (ER) | payer OTHER ==
[~2024-08-14] VITALS: Ht 172.7 cm; Wt 120.2 kg
[2024-08-14 19:32] VITALS: BP 169/95
[2024-08-14] MEDS ORDERED: Ketorolac Tromethamine 15mg Vial IM ONE (21:15)
[2024-08-14] MEDS ORDERED: RX Prepack 6 Tabs Oxycodone 5mg UD ONE (21:15)
[2024-08-14] MEDS ORDERED: Percocet 5-3251 EACH PO (21:19)
== END 2024-08-14 21:32 | disposition home or self-care (01) ==
LOC: ER 19:25
DX: S76.012A Strain of muscle, fascia and tendon of left hip, initial encounter (principal); W00.0XXA Fall on same level due to ice and snow, initial encounter; J45.909 Unspecified asthma, uncomplicated; E11.9 Type 2 diabetes mellitus without complications; I10 Essential (primary) hypertension; Z91.041 Radiographic dye allergy status; Z79.890 Hormone replacement therapy; Z79.4 Long term (current) use of insulin; Z79.899 Other long term (current) drug therapy
CPT/HCPCS: 73502; 96372; 99283-25; A9270; J1885